=== PATIENT | female | born 1950 | race Hispanic/Latino ===

== ENCOUNTER 2021-10-18 19:04 | Emergency (ER) | payer OTHER ==
[2021-10-18] MEDS ORDERED: Benzonatate 100 MG CAP ONE (19:41)
[2021-10-18] MEDS ORDERED: Albuterol 200 PUFF (6.7GM INHALER) ONE (19:41)
[2021-10-18] MEDS ORDERED: Oseltamivir 75 MG CAP ONE (20:10)
== END 2021-10-18 20:19 | disposition home or self-care (01) ==
LOC: MADERS 19:04
DX: J10.1 Influenza due to other identified influenza virus with other respiratory manifestations (principal); E03.9 Hypothyroidism, unspecified; I10 Essential (primary) hypertension; E11.9 Type 2 diabetes mellitus without complications; Z79.84 Long term (current) use of oral hypoglycemic drugs; Z79.899 Other long term (current) drug therapy
CPT/HCPCS: 71045; 87804; 93005